=== PATIENT | female | born 2000 | race African-American/Black ===

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

== ENCOUNTER 2021-07-22 13:09 | Emergency (ER) | payer MEDICAID, OTHER ==
[~2021-07-22] VITALS: Ht 177.8 cm; Wt 79.0 kg
[2021-07-22] MEDS ORDERED: SODIUM CHLORIDE 0.9% 1,000 ML IV ONE (14:00)
[2021-07-22 14:36] LABS: CHLORIDE 107 mEq/L (98-107)
[2021-07-22 15:22] LABS: CLARITY URINE CLEAR (CLEAR); COLOR URINE YELLOW (YELLOW); KETONES URINE NEGATIVE (NEGATIVE); LEUKOCYTE ESTERASE URINE NEGATIVE (NEGATIVE); NITRITE URINE NEGATIVE (NEGATIVE); OCCULT BLOOD URINE NEGATIVE (NEGATIVE); PH URINE 5.5 (4.5-8.0); PROTEIN URINE NEGATIVE (NEGATIVE); SPECIFIC GRAVITY URINE 1.018 (1.005-1.030); UROBILINOGEN URINE 0.2 E.U./dL (0.2-1.0)
[2021-07-22 15:26] LABS: BASOPHILS % 0.6 % (0.0-2.0); EOSINOPHILS % 14.2 % (0.0-5.0); HEMATOCRIT. 39.2 % (36.0-48.0); HEMOGLOBIN. 13.2 g/dL (12.0-16.0); LYMPHOCYTES % 31.4 % (20.0-50.0); MEAN CORPUSCULAR HEMOGLOBIN 29.5 pg (28.0-32.0); MEAN CORPUSCULAR VOLUME 87.5 fL (81.0-99.0); MEAN PLATELET VOLUME 9.5 fl (7.4-10.4); MONOCYTES % 7.6 % (2.0-8.0); NEUTROPHILS % 46.2 % (40.0-76.0); PLATELET 186 x1000/uL (130-400); RED BLOOD CELL COUNT 4.48 mill/uL (4.2-5.4); RED CELL DISTRIBUTION WIDTH 12.6 % (11.6-14.6)
[2021-07-22 16:30] VITALS: BP 110/67
== END 2021-07-22 16:42 | disposition home or self-care (01) ==
LOC: ER 13:09
DX: J02.9 Acute pharyngitis, unspecified (principal); B34.9 Viral infection, unspecified; D70.9 Neutropenia, unspecified; Z20.822 Contact with and (suspected) exposure to COVID-19; Z98.890 Other specified postprocedural states
CPT/HCPCS: 36415; 71045; 80053; 81003; 85025; 87070; 87426; 87430; 93005; 96360; 96361; 99285; J7030

== ENCOUNTER 2021-08-26 06:02 | Emergency (ER) | payer MEDICAID ==
[~2021-08-26] VITALS: Ht 177.8 cm; Wt 81.0 kg
[2021-08-26] MEDS ORDERED: ALBUTEROL (0.083%) 2.5MG/3ML NEB HHN STA (06:31)
[2021-08-26] MEDS ORDERED: KETOROLAC 30MG/ML VIAL IV ONE (06:45)
[2021-08-26] MEDS ORDERED: METOCLOPRAMIDE HCL 10MG/2ML VIAL IV ONE (06:45)
[2021-08-26 07:07] LABS: BASOPHILS % 0.4 % (0.0-2.0); CHLORIDE 108 mEq/L (98-107); EOSINOPHILS % 7.3 % (0.0-5.0); HEMATOCRIT. 38.7 % (36.0-48.0); HEMOGLOBIN. 13.2 g/dL (12.0-16.0); LYMPHOCYTES % 23.8 % (20.0-50.0); MEAN CORPUSCULAR HEMOGLOBIN 29.3 pg (28.0-32.0); MEAN CORPUSCULAR VOLUME 85.8 fL (81.0-99.0); MEAN PLATELET VOLUME 9.9 fl (7.4-10.4); MONOCYTES % 5.6 % (2.0-8.0); NEUTROPHILS % 62.9 % (40.0-76.0); PLATELET 197 x1000/uL (130-400); RED BLOOD CELL COUNT 4.52 mill/uL (4.2-5.4)
[2021-08-26] MEDS ORDERED: METOCLOPRAMIDE HCL 10MG/2ML VIAL IV NR (08:14)
[2021-08-26] MEDS ORDERED: KETOROLAC 30MG/ML VIAL IV NR (08:14)
[2021-08-26] MEDS ORDERED: BECL10.6 INH (08:20)
[2021-08-26] MEDS ORDERED: ALBU6.7H9 INH (08:20)
[2021-08-26 09:06] VITALS: BP 103/67
== END 2021-08-26 09:08 | disposition home or self-care (01) ==
LOC: ER 06:02
DX: R06.2 Wheezing (principal); F12.10 Cannabis abuse, uncomplicated; Z20.822 Contact with and (suspected) exposure to COVID-19
CPT/HCPCS: 36415; 71045; 80053; 83880; 84484; 85025; 87426; 87804; 93005; 94640; 96374; 96375; 99285; J1885; J2765; Z7610

== ENCOUNTER 2022-02-18 04:02 | Emergency (ER) | payer MEDICAID, OTHER ==
[~2022-02-18] VITALS: Ht 177.8 cm; Wt 84.0 kg
[~2022-02-18 04:02] MED LIST: ALBU6.7H3 INH; BECL10.6 INH
[2022-02-18 04:49] VITALS: BP 102/53
[2022-02-18] MEDS ORDERED: AM250 PO (07:31)
[2022-02-18] MEDS ORDERED: AMOX-494 MT (07:32)
== END 2022-02-18 09:03 | disposition home or self-care (01) ==
LOC: ER 04:02
DX: J02.0 Streptococcal pharyngitis (principal); F12.10 Cannabis abuse, uncomplicated; Z98.890 Other specified postprocedural states
CPT/HCPCS: 81025; 87070; 87430; 99284

== ENCOUNTER 2023-02-14 09:58 | Emergency (ER) | payer MEDICAID ==
[~2023-02-14] VITALS: Ht 177.8 cm; Wt 88.0 kg
[~2023-02-14 09:58] MED LIST changes: +AMOX-494 MT
[2023-02-14 10:29] VITALS: TEMP 98.2; O2SAT 100
[2023-02-14 11:45] VITALS: BP 114/63; PULSE 73; RESP 19
[2023-02-14] MEDS ORDERED: DIPHENHYDRAMINE 25MG CAPSULE PO ONE (11:45)
[2023-02-14] MEDS ORDERED: METOCLOPRAMIDE HCL 10MG TABLET PO ONE (11:45)
[2023-02-14] MEDS ORDERED: KETOROLAC 30MG/ML VIAL IM ONE (11:45)
== END 2023-02-14 16:20 | disposition home or self-care (01) ==
LOC: ER 10:13
DX: R51.9 Headache, unspecified (principal); F41.9 Anxiety disorder, unspecified; F12.90 Cannabis use, unspecified, uncomplicated; Z98.890 Other specified postprocedural states
CPT/HCPCS: 81025; 70450; 96372; 99285; Q0163; J8597; J1885; Z7610

== ENCOUNTER 2025-01-23 20:11 | Emergency (ER) | payer MEDICAID ==
[~2025-01-23] VITALS: Ht 175.3 cm; Wt 86.9 kg
[2025-01-23] MEDS: SODIUM CHLORIDE 0.9% (SEPSIS BOLUS) IV ONE (20:37)
[2025-01-23] MEDS: AZITHROMYCIN 500MG/250ML 250 ML IV ONE (20:46)
[2025-01-23] MEDS: ACETAMINOPHEN 325MG TABLET PO ONE (20:49)
[2025-01-23 20:52] LABS: BASOPHILS % 0.2 % (0.0-2.0); EOSINOPHILS % 2.3 % (0.0-5.0); HEMATOCRIT. 38.4 % (36.0-48.0); HEMOGLOBIN. 12.7 g/dL (12.0-16.0); LYMPHOCYTES % 8.6 % (20.0-50.0); MEAN PLATELET VOLUME 10.5 fl (7.4-10.4); MONOCYTES % 5.5 % (2.0-8.0); NEUTROPHILS % 83.4 % (40.0-76.0); PLATELET 178 x1000/uL (130-400); RED BLOOD CELL COUNT 4.47 mill/uL (4.2-5.4); RED CELL DISTRIBUTION WIDTH 13.5 % (11.6-14.6)
[2025-01-23 21:01] LABS: CREATININE 0.9 mg/dL (0.6-1.0); UREA NITROGEN BLOOD 6 mg/dL (9-23)
[2025-01-23 21:02] LABS: INR 1.0
[2025-01-23 21:03] LABS: ASPARTATE AMINOTRANSFERASE 14 IU/L (<34); BILIRUBIN DIRECT 0.2 mg/dL (<=3.0); BILIRUBIN TOTAL 0.6 mg/dL (0.1-1.0)
[2025-01-23 21:04] LABS: PROTEIN TOTAL 7.3 g/dL (6.0-8.3)
[2025-01-23 21:05] LABS: HCG SCREEN NEGATIVE
[2025-01-23 22:43] LABS: CLARITY URINE CLEAR (CLEAR); COLOR URINE YELLOW (YELLOW); GLUCOSE URINE NEGATIVE (NEGATIVE); KETONES URINE 2+ (NEGATIVE); LEUKOCYTE ESTERASE URINE NEGATIVE (NEGATIVE); NITRITE URINE NEGATIVE (NEGATIVE); OCCULT BLOOD URINE 1+ (NEGATIVE); PH URINE 5.5 (4.5-8.0); PROTEIN URINE NEGATIVE (NEGATIVE); SPECIFIC GRAVITY URINE 1.012 (1.005-1.030); UROBILINOGEN URINE 0.2 E.U./dL (0.2-1.0)
[2025-01-23 22:54] LABS: BACTERIA URINE 2+; SQUAMOUS EPITHELIAL CELL URINE 1+ /lpf (RARE/1+); WBC URINE 0-2 /hpf (0-2)
[2025-01-23] MEDS: CEFTRIAXONE 1GM/50ML 50 ML IV ONE (23:08)
[2025-01-23] MEDS: CEFTRIAXONE 1GM/50ML 50 ML IV NR (23:36)
[2025-01-24 02:08] VITALS: PULSE 90; RESP 24; O2SAT 99
[2025-01-24] MEDS: IPRATROPIUM BROMIDE (0.02%) 0.5MG/2.5ML NEB HHN NR (02:09)
[2025-01-24] MEDS: ALBUTEROL (0.083%) 2.5MG/3ML NEB HHN NR (02:10)
[2025-01-24] MEDS ORDERED: P20 MT (02:56)
[2025-01-24] MEDS ORDERED: GUAI600T26 MT (02:56)
[2025-01-24] MEDS ORDERED: ALBU90AE INH (02:56)
[2025-01-24 03:02] VITALS: PULSE 99; RESP 20; O2SAT 100
[2025-01-24] MEDS: METHYLPREDNISOLONE SOD SUCC 125MG/2ML (ACT-O-VIAL) IV NR (03:10)
[2025-01-24] MEDS: ALBUTEROL (0.5%) 2.5MG/0.5ML NEB HHN ONE (03:16)
[2025-01-24 04:03] VITALS: BP 106/60; PULSE 99; RESP 25; TEMP 36.9; O2SAT 98
== END 2025-01-24 04:09 | disposition home or self-care (01) ==
LOC: ER 20:11 → CMPBEDREQ 01-24 08:52
DX: J45.901 Unspecified asthma with (acute) exacerbation (principal); B34.9 Viral infection, unspecified; Z20.822 Contact with and (suspected) exposure to COVID-19; F17.200 Nicotine dependence, unspecified, uncomplicated; F10.90 Alcohol use, unspecified, uncomplicated; F12.90 Cannabis use, unspecified, uncomplicated; Z79.51 Long term (current) use of inhaled steroids; Y90.9 Presence of alcohol in blood, level not specified
CPT/HCPCS: 80076; 80048; 81003; 84703; 83605; 83735; 85025; 85610; 87040; 87086; 36415; 84145; 71045; 93005; 96367; 96365; 96366; 99285; 87426; 94640; 96375; J0456; J0696; J7030; J2919; Z7610; 94070; 94664; 94760